=== PATIENT | male | born 1995 | race Two or more races ===

== ENCOUNTER 2023-12-17 09:50 | Emergency (ER) | payer MEDICAID, OTHER ==
[~2023-12-17] VITALS: Ht 175.3 cm; Wt 118.0 kg
[2023-12-17 09:54] VITALS: TEMP 98; O2SAT 96
[2023-12-17 11:31] LABS: BASOPHILS % 0.8 % (0.0-2.0); EOSINOPHILS % 3.4 % (0.0-5.0); HEMATOCRIT. 43.9 % (42.0-52.0); HEMOGLOBIN. 14.5 g/dL (14.0-18.0); LYMPHOCYTES % 20.7 % (20.0-50.0); MEAN CORPUSCULAR HEMOGLOBIN 28.4 pg (28.0-32.0); MEAN CORPUSCULAR VOLUME 85.9 fL (80.0-94.0); MEAN PLATELET VOLUME 7.4 fl (7.4-10.4); NEUTROPHILS % 67.1 % (40.0-76.0); PLATELET 336 x1000/uL (130-400); RED BLOOD CELL COUNT 5.11 mill/uL (4.7-6.1); RED CELL DISTRIBUTION WIDTH 13.9 % (11.6-14.6); WHITE BLOOD COUNT 7.5 x1000/uL (4.5-11.0)
[2023-12-17 11:38] LABS: CHLORIDE 107 mEq/L (98-107); POTASSIUM 4.5 mEq/L (3.5-5.1); SODIUM 139 mEq/L (136-145)
[2023-12-17 11:39] LABS: CALCIUM 9.3 mg/dL (8.7-10.4); CARBON DIOXIDE 28 mEq/L (21-32)
[2023-12-17 11:44] LABS: CARBAMAZEPINE 7.2 ug/mL (4-12); GLUCOSE 98 mg/dL (70-105); UREA NITROGEN BLOOD 11 mg/dL (9-23)
[2023-12-17 11:45] LABS: ETHANOL BLOOD < 10 mg/dL (<10); PHENOBARBITAL < 3.0 ug/mL (15.0-40.0); PHENYTOIN < 2.0 ug/mL (10-20)
[2023-12-17] MEDS ORDERED: CARBAMAZEPINE 200MG TABLET PO ONE (11:45)
[2023-12-17 11:48] LABS: VALPROIC ACID < 3.0 ug/mL (50-100)
[2023-12-17] MEDS: CARBAMAZEPINE 100MG TABLET CHEW PO NR (12:13)
[2023-12-17] MEDS ORDERED: HYDRALAZINE 20MG/ML VIAL IV PRN (12:30)
[2023-12-17] MEDS ORDERED: IPRATROPIUM/ALBUTEROL 0.5-3(2.5)MG/3ML NEB HHN PRN (12:30)
[2023-12-17] MEDS ORDERED: SODIUM CHLORIDE 0.45% 1,000 ML IV SCH (12:30)
[2023-12-17] MEDS ORDERED: ACETAMINOPHEN 325MG TABLET PO PRN (12:30)
[2023-12-17] MEDS ORDERED: DEXTROSE 50% WATER 50ML SYRINGE IV PRN (12:30)
[2023-12-17] MEDS ORDERED: ONDANSETRON HCL 4MG/2ML INJ IV PRN (12:30)
[2023-12-17 13:00] VITALS: BP 125/80; PULSE 81; RESP 16; O2SAT 95
[2023-12-17] MEDS ORDERED: BLOOD SUGAR DIAGNOSTIC STRIP TEST SCH (13:00)
[2023-12-17] MEDS ORDERED: CARBAMAZEPINE 100MG TABLET CHEW PO SCH (17:00)
[2023-12-17] MEDS ORDERED: FLUOXETINE HCL 20MG CAPSULE PO SCH (21:00)
[2023-12-18] MEDS ORDERED: LORATADINE 10MG TABLET PO SCH (09:00)
== END 2023-12-17 14:37 | disposition left against medical advice (07) ==
LOC: ER 09:50 → EDBEDREQ 11:27 → ER 14:37
DX: R56.9 Unspecified convulsions (principal); Z98.890 Other specified postprocedural states
CPT/HCPCS: 80048; 80320; 80156; 80185; 80184; 80165; 85025; 36415; 71045; 70450; 93005; 99285; Z7610 ×2; G0480

== ENCOUNTER 2024-06-06 09:25 | Emergency (ER) | payer MEDICAID, OTHER ==
[~2024-06-06] VITALS: Ht 177.8 cm; Wt 100.0 kg
[2024-06-06 09:27] VITALS: O2SAT 99
[2024-06-06 09:45] VITALS: BP 129/52; PULSE 98; RESP 17; TEMP 36.4; O2SAT 95
[2024-06-06 10:14] LABS: CHLORIDE 102 mEq/L (98-107); POTASSIUM 4.7 mEq/L (3.5-5.1); SODIUM 138 mEq/L (136-145)
[2024-06-06 10:15] LABS: CALCIUM 9.5 mg/dL (8.7-10.4); CARBON DIOXIDE 18 mEq/L (21-32)
[2024-06-06 10:20] LABS: BASOPHILS % 0.7 % (0.0-2.0); CREATININE 1.2 mg/dL (0.6-1.3); EOSINOPHILS % 5.3 % (0.0-5.0); GLUCOSE 168 mg/dL (70-105); HEMATOCRIT. 47.3 % (42.0-52.0); HEMOGLOBIN. 15.1 g/dL (14.0-18.0); LYMPHOCYTES % 40.8 % (20.0-50.0); MEAN CORPUSCULAR HEMOGLOBIN 27.1 pg (28.0-32.0); MEAN CORPUSCULAR HGB CONC 31.8 g/dL (31.0-37.0); MEAN PLATELET VOLUME 7.8 fl (7.4-10.4); MONOCYTES % 9.1 % (2.0-8.0); NEUTROPHILS % 44.1 % (40.0-76.0); PLATELET 386 x1000/uL (130-400); RED BLOOD CELL COUNT 5.57 mill/uL (4.7-6.1); RED CELL DISTRIBUTION WIDTH 13.8 % (11.6-14.6); UREA NITROGEN BLOOD 12 mg/dL (9-23); WHITE BLOOD COUNT 6.5 x1000/uL (4.5-11.0)
[2024-06-06 10:39] LABS: ETHANOL BLOOD < 10 mg/dL (<10)
== END 2024-06-06 11:00 | disposition home or self-care (01) ==
LOC: ER 09:25
DX: G40.909 Epilepsy, unspecified, not intractable, without status epilepticus (principal)
CPT/HCPCS: 80048; 80320; 85025; 36415; 99284; Z7610; A4606; G0480